=== PATIENT | male | born 2005 | race Caucasian/White ===

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

== ENCOUNTER 2024-09-01 08:02 | Emergency (ER) | payer OTHER ==
[2024-09-01] MEDS ORDERED: Ibuprofen 800 MG TAB ONE (08:39)
== END 2024-09-01 09:30 | disposition home or self-care (01) ==
LOC: ERS 08:02
DX: S70.311A Abrasion, right thigh, initial encounter (principal); M25.561 Pain in right knee; V89.2XXA Person injured in unspecified motor-vehicle accident, traffic, initial encounter
CPT/HCPCS: 99283